=== PATIENT | female | born 1995 | race Caucasian/White ===

== ENCOUNTER 2018-02-12 16:44 | Emergency (ER) | payer MEDICAID ==
--- NOTE | 2018-02-12 17:14 | ED Physician Documentation ---
History of Present Illness - Stated complaint Stated Complaint: RIGHT ANKLE INJURY - Chief complaint Chief Complaint: Ext Problem - Additonal information Additional information: hx from pt 22 f denies preg fell down stairs pain to right ankle and foot no other sig injury occurred several days ago Review of Systems Musculoskeletal: reports: Pain with weight bearing PD PAST MEDICAL HISTORY - Past Medical History Past Medical History: Yes Musculoskeletal: Fibromyalgia - Present Medications Home Medications: Ambulatory Orders Medication Instructions Recorded Confirmed No Known Home Medications [No 02/12/18 02/12/18 Known Home Medications] - Allergies Allergies/Adverse Reactions: Allergies Allergy/AdvReac Type Severity Reaction Status Date / Time acetaminophen [From Vicodin] AdvReac Emesis Verified 02/12/18 16:56 hydrocodone [From Vicodin] AdvReac Emesis Verified 02/12/18 16:56 - Social History Does the pt smoke?: No Smoking Status: Never smoker Does the pt drink ETOH?: Yes Does the pt have substance abuse?: No - Immunizations Immunizations are current?: Yes PD ED PE NORMAL - Vitals Vital signs reviewed: Yes - Cardiac Cardiac: RRR - Respiratory Respiratory: No respiratory distress, Clear bilaterally - Extremities Extremities: Other (RLE: knee NT, prox tib fib NT, + swellignand TTP lateral mall > medial mall, achilles intact, TT base 5th, no laxity, MSV intact) Results - Vitals Vitals: Vital Signs - 24 hr 02/12/18 16:53 Temperature 36.6 C Heart Rate 101 H Respiratory 16 Rate Blood Pressure 150/82 H O2 Saturation 97 - Rads (name of study) ankle Radiology: See rad report (STS no fx) foot Radiology: See rad report (STS no fx) Departure - Departure Disposition: 01 Home, Self Care Clinical Impression: Ankle sprain Qualifiers: Encounter type: initial encounter Involved ligament of ankle: unspecified ligament Laterality: right Qualified Code(s): S93.401A - Sprain of unspecified ligament of right ankle, initial encounter Foot sprain Qualifiers: Encounter type: initial encounter Laterality: right Qualified Code(s): S93.601A - Unspecified sprain of right foot, initial encounter Condition: Good Instructions: ED Sprain Ankle, ED Sprain Foot Comments: The xrays show no fracture or dislocation. I suspect a sprain Recommend wearing the ABIOLA, applying ice for 20 min 3 times a day for three days , and elevation to decrease the swelling Crutches as needed to reduce weight bearing stress - if still cannot walk normally in 2 weeks, please follow up with your PMD for a recheck and consideration of further imaging Motrin and tylenol as needed for the pain And please get your blood pressure rechecked - it was high today
--- NOTE | 2018-02-12 17:37 | XRAY Report ---
EXAM: RIGHT ANKLE RADIOGRAPHY EXAM DATE: 02/12/2018 05:16 PM. CLINICAL HISTORY: Pain s/p fall. COMPARISON: None. TECHNIQUE: 3 views. FINDINGS: Bones: No fracture or focal bony lesion. Joints: No evidence of dislocation. Soft Tissues: There is lateral ankle soft tissue swelling. IMPRESSION: No evidence of fracture or dislocation. [facility] Referring Provider Line: [phone] SITE ID: [id number]
--- NOTE | 2018-02-12 17:38 | XRAY Report ---
EXAM: RIGHT FOOT RADIOGRAPHY EXAM DATE: 02/12/2018 05:16 PM. CLINICAL HISTORY: Fell down stairs. COMPARISON: None. TECHNIQUE: 3 views. FINDINGS: Bones: No fracture or focal bony lesion. Joints: No evidence of dislocation. Soft Tissues: No unexpected soft tissue findings. IMPRESSION: No evidence of fracture or dislocation. [facility] Referring Provider Line: [phone] SITE ID: [id number]
[2018-02-12] MEDS ORDERED: IBUPROFEN 400 MG TABLET PO STA (17:50)
[2018-02-12 18:21] VITALS: BP 133/83
== END 2018-02-12 18:18 | disposition home or self-care (01) ==
LOC: ED 16:44
DX: S93.401A Sprain of unspecified ligament of right ankle, initial encounter (principal); S93.601A Unspecified sprain of right foot, initial encounter; W10.9XXA Fall (on) (from) unspecified stairs and steps, initial encounter
CPT/HCPCS: 73610; 73630; 99282; 99283; A9270

== ENCOUNTER 2021-11-20 06:48 | Emergency (ER) | payer SELFPAY ==
[2021-11-20 06:58] VITALS: BP 128/98
--- NOTE | 2021-11-20 07:14 | ED Physician Documentation ---
PD HPI HEENT - Stated complaint Stated Complaint: LT EAR PX - Chief complaint Chief Complaint: Heent - History obtained from History obtained from: Patient - History of Present Illness Timing - onset: How many days ago (4) Timing - duration: Days (4) Timing - details: Gradual onset, Still present (much worse the past day, with pain causing lack of sleep the past 2 nights.) Location: Left ear. No: Nose, Throat Improves: No: Medication (tried ibuprofen and excedrin without improvement) Associated symptoms: Swollen nodes (left anterior cervical). No: Fever, Congestion Similar symptoms before: Diagnosis (ear infections in the past, but has been man y years since last one.) Recently seen: Not recently seen Review of Systems Constitutional: denies: Fever, Chills Ears: reports: Loss of hearing (decreased left side), Ear pain. denies: Drainage/discharge, Tinnitus/ringing Nose: denies: Rhinorrhea / runny nose, Congestion, Sinus pressure / pain Throat: denies: Sore throat Respiratory: denies: Cough Skin: denies: Rash, Lesions Neurologic: reports: Headache (left side head around ear.). denies: Focal weakness, Numbness, Altered mental status PD PAST MEDICAL HISTORY - Past Medical History Past Medical History: Yes Cardiovascular: None Respiratory: None Endocrine/Autoimmune: None Psych: Depression, Anxiety, Panic attacks, Post traumatic stress disorder Musculoskeletal: Fibromyalgia - Past Surgical History Past Surgical History: Yes - Present Medications Home Medications: Ambulatory Orders Medication Instructions Recorded Confirmed ARIPiprazole [Abilify] 20 mg PO DAILY 11/20/21 11/20/21 Buspirone HCl 10 mg PO DAILY 11/20/21 11/20/21 Ciprofloxacin HCl [Cipro] 500 mg PO BID #10 tablet 11/20/21 Naproxen 500 mg PO BID 7 Days #14 tab.sr 11/20/21 Neomycin/Polymyx/Hc Otic Drops 4 drops OT ONCE 5 Days #10 ml 11/20/21 [Cortisporin Ear Susp] Oxycodone HCl/Acetaminophen 1 each PO Q6H PRN #12 tablet 11/20/21 [Percocet 5-325 mg Tablet] Venlafaxine HCl [Effexor Xr] 225 mg PO DAILY 11/20/21 11/20/21 hydrOXYzine PAMOATE [Vistaril] 75 mg PO DAILY 11/20/21 11/20/21 - Allergies Allergies/Adverse Reactions: Allergies Allergy/AdvReac Type Severity Reaction Status Date / Time acetaminophen [From Vicodin] AdvReac Emesis Verified 11/20/21 06:58 hydrocodone [From Vicodin] AdvReac Emesis Verified 11/20/21 06:58 - Living Situation Living Situation: reports: With family Living Arrangement: reports: At home - Social History Does the pt smoke?: No Smoking Status: Never smoker Does the pt drink ETOH?: Yes Does the pt have substance abuse?: No - Immunizations Immunizations are current?: Yes - POLST Patient has POLST: No PD ED PE NORMAL - Vitals Vital signs reviewed: Yes - General General: Alert and oriented X 3, Well developed/nourished, Other (appears uncomfortable due to ear pain) - HEENT HEENT: Moist mucous membranes, Pharynx benign. No: Ears normal (right appears okay. Left canal with moderate swelling and redness. Tenderness in preauricular area as well. Not tender nor red in mastoid area. Left anterior neck with tender adenopathy. No abscess. TM poorly seen on left due to canal swelling. ) - Neck Neck: Supple, no meningeal sign - Cardiac Cardiac: RRR, No murmur - Respiratory Respiratory: Clear bilaterally - Derm Derm: Normal color, Warm and dry - Neuro Neuro: Alert and oriented X 3, No motor deficit, Normal speech Results - Vitals Vitals: Vital Signs - 24 hr 11/20/21 06:53 Temperature 36.9 C Heart Rate 98 Respiratory 18 Rate Blood Pressure 128/98 H O2 Saturation 100 Oxygen O2 Source Room air PD MEDICAL DECISION MAKING - ED course Complexity details: considered differential (otitis externa but also with tissue swelling and tender adenopathy c/w deeper tissue involvement so went with oral as well as topical, with med choice per UpToDate suggestions. ), d/w patient Departure - Departure Disposition: 01 Home, Self Care Clinical Impression: Cellulitis of left ear canal Otitis externa Qualifiers: Otitis externa type: unspecified type Chronicity: acute Laterality: left Qualified Code(s): H60.502 - Unspecified acute noninfective otitis externa, left ear Condition: Stable Record reviewed to determine appropriate education?: Yes Instructions: ED Infec Skin Cellulitis, ED Otitis Externa Prescriptions: Ciprofloxacin HCl [Cipro] 500 mg PO BID #10 tablet Neomycin/Polymyx/Hc Otic Drops [Cortisporin Ear Susp] 4 drops OT ONCE 5 Days #10 ml Naproxen 500 mg PO BID 7 Days #14 tab.sr Oxycodone HCl/Acetaminophen [Percocet 5-325 mg Tablet] 1 each PO Q6H PRN #12 tablet PRN Reason: pain Comments: Use Cipro antibiotic twice daily for 5 days and Cortisporin antibiotic ear drops 4 times daily for 5 days. For the pain and swelling, take Naproxen twice daily with food. Add Tylenol every 4-6 hours for pain or Percocet for worse pain. I would anticipate improvement over the next few days. Recheck if not better in 2-3 days. I transmitted your scripts to [facility] in [place], as they will be open today. Discharge Date/Time: 11/20/21 08:10
[2021-11-20] MEDS ORDERED: oxyCODONE 5 MG TABLET PO STA (07:28)
[2021-11-20] MEDS ORDERED: ACETAMINOPHEN 325 MG TABLET PO STA (07:28)
[2021-11-20] MEDS ORDERED: CIPROFLOXACIN 250 MG TABLET PO STA (07:34)
[2021-11-20] MEDS ORDERED: ONDANSETRON ODT 4 MG TABLET TL STA (07:35)
== END 2021-11-20 08:10 | disposition home or self-care (01) ==
LOC: ED 06:48
DX: H60.502 Unspecified acute noninfective otitis externa, left ear (principal); H60.12 Cellulitis of left external ear
CPT/HCPCS: 99283; 99284; A9270; Q0162

== ENCOUNTER 2021-12-30 14:14 | Emergency (ER) | payer SELFPAY ==
[2021-12-30] MEDS ORDERED: SODIUM CHLORIDE 0.9% 1,000 ML IV STA (14:45)
[2021-12-30] MEDS ORDERED: diphenhydrAMINE INJ 50 MG/ML VIAL IVP STA (14:45)
[2021-12-30] MEDS ORDERED: METOCLOPRAMIDE 10 MG/2 ML VIAL IVP STA (14:45)
[2021-12-30] MEDS ORDERED: KETOROLAC 15 MG/ML VIAL IVP STA (14:45)
--- NOTE | 2021-12-30 14:47 | ED Physician Documentation ---
PD HPI HEADACHE - Stated complaint Stated Complaint: HEAD PX - Chief complaint Chief Complaint: Neuro - History obtained from History obtained from: Patient - Additional information Additional information: 26-year-old woman with generally monthly or bimonthly migraines developed a typical migraine 10 days ago but was persistent despite taking Excedrin and a homeopathic migraine medicine. Headache is milder now but persistent, bitemporal and occipital. The nausea, light sensitivity and sound sensitivity have abated. There is no associated neck stiffness or fever. No sudden onset. Review of Systems Constitutional: denies: Fever, Chills Nose: denies: Rhinorrhea / runny nose, Congestion Cardiac: denies: Chest pain / pressure, Palpitations Respiratory: denies: Dyspnea, Cough PD PAST MEDICAL HISTORY - Past Medical History Cardiovascular: None Respiratory: None Endocrine/Autoimmune: None Psych: Depression, Anxiety, Panic attacks, Post traumatic stress disorder Musculoskeletal: Fibromyalgia - Past Surgical History Past Surgical History: Yes - Present Medications Home Medications: Ambulatory Orders Medication Instructions Recorded Confirmed ARIPiprazole [Abilify] 10 mg PO HS 11/20/21 12/30/21 Buspirone HCl 10 mg PO BID 11/20/21 12/30/21 Venlafaxine HCl [Effexor Xr] 225 mg PO DAILY 11/20/21 12/30/21 hydrOXYzine PAMOATE [Vistaril] 25 mg PO TID 11/20/21 12/30/21 Gabapentin [Neurontin] 300 mg PO DAILY 12/30/21 12/30/21 Gabapentin [Neurontin] 600 mg PO HS 12/30/21 12/30/21 OXcarbazepine [Trileptal] 150 mg PO BID 12/30/21 12/30/21 SUMAtriptan [Imitrex] 25 mg PO BID PRN #10 tablet 12/30/21 - Allergies Allergies/Adverse Reactions: Allergies Allergy/AdvReac Type Severity Reaction Status Date / Time acetaminophen [From Vicodin] AdvReac Emesis Verified 12/30/21 14:24 hydrocodone [From Vicodin] AdvReac Emesis Verified 12/30/21 14:24 - Social History Does the pt smoke?: No Smoking Status: Never smoker Does the pt drink ETOH?: Yes Does the pt have substance abuse?: No - Immunizations Immunizations are current?: Yes - POLST Patient has POLST: No PD ED PE NORMAL - Vitals Vital signs reviewed: Yes - General General: Alert and oriented X 3, No acute distress - HEENT HEENT: PERRL, EOMI - Neck Neck: Supple, no meningeal sign, No bony TTP - Neuro Neuro: Alert and oriented X 3, mems device scientist 2-12 intact, No motor deficit, No sensory deficit, Normal speech Eye Opening: Spontaneous Motor: Obeys Commands Verbal: Oriented GCS Score: 15 - Psych Psych: Normal mood, Normal affect Results - Vitals Vitals: Vital Signs - 24 hr 12/30/21 12/30/21 12/30/21 14:20 15:46 16:00 Temperature 36.7 C Heart Rate 87 88 71 Respiratory 16 18 18 Rate Blood Pressure 148/91 H 130/72 O2 Saturation 100 99 Oxygen O2 Source Room air PD MEDICAL DECISION MAKING - ED course ED course: The headache is gradual in onset and similar to prior headaches. As such I doubt subarachnoid hemorrhage. There are no infectious symptoms such as fever or stiff neck to make me suspect meningitis. No carbon monoxide exposure by history. She was initially given some IV fluids, Reglan, Toradol, and Benadryl. This resulted in really no change in her headache. Somewhere in there she did develop some wheezing but she just felt like that was from her usual asthma and did not have her inhaler with her so she was given a breathing treatment with relief. The above medications were followed with droperidol with almost complete relief of her headache. Departure - Departure Disposition: 01 Home, Self Care Clinical Impression: Migraine Condition: Good Record reviewed to determine appropriate education?: Yes Instructions: Imitrex, ED Headache Migraine Prescriptions: SUMAtriptan [Imitrex] 25 mg PO BID PRN #10 tablet PRN Reason: Headache Comments: Your headache responded today to droperidol, that may be a useful piece of information for future migraines. I sent your prescription for Imitrex to [facility] in [place]. Follow-up with your physician and report if it is working or not. Return for new or worsening symptoms. Do not drive today.
[2021-12-30 15:48] VITALS: BP 130/72
[2021-12-30] MEDS ORDERED: DROPERIDOL 5 MG/2 ML VIAL IVP STA (15:48)
[2021-12-30] MEDS ORDERED: ALBUTEROL NEB 2.5 MG/3 ML INH STA (15:48)
== END 2021-12-30 16:35 | disposition home or self-care (01) ==
LOC: ED 14:14
DX: G43.109 Migraine with aura, not intractable, without status migrainosus (principal); R06.2 Wheezing
CPT/HCPCS: 94640; 94664; 96374; 96375; 99283; 99284; J1200; J2765

== ENCOUNTER 2023-01-08 22:44 | Emergency (ER) | payer SELFPAY ==
[2023-01-08 22:56] VITALS: BP 123/85
[2023-01-08] MEDS ORDERED: ALBUTEROL NEB 2.5 MG/3 ML INH STA (23:44)
--- NOTE | 2023-01-09 00:03 | ED Physician Documentation ---
History of Present Illness - Stated complaint Stated Complaint: BREATHING TREATMENT - Chief complaint Chief Complaint: General - History obtained from History obtained from: Patient - Additonal information Additional information: 27yF with pmh asthma p/w nighttime cough and wheezing for the past several days. denies fever, soa, cp. Review of Systems Constitutional: denies: Fever Cardiac: denies: Chest pain / pressure Respiratory: reports: Cough. denies: Dyspnea PD PAST MEDICAL HISTORY - Past Medical History Past Medical History: Yes Cardiovascular: None Respiratory: None Endocrine/Autoimmune: None Psych: Depression, Anxiety, Panic attacks, Post traumatic stress disorder Musculoskeletal: Fibromyalgia - Past Surgical History Past Surgical History: Yes - Present Medications Home Medications: Ambulatory Orders Medication Instructions Recorded Confirmed ARIPiprazole [Abilify] 10 mg PO HS 11/20/21 12/30/21 Buspirone HCl 10 mg PO BID 11/20/21 12/30/21 Venlafaxine HCl [Effexor Xr] 225 mg PO DAILY 11/20/21 12/30/21 hydrOXYzine PAMOATE [Vistaril] 25 mg PO TID 11/20/21 12/30/21 Gabapentin [Neurontin] 300 mg PO DAILY 12/30/21 12/30/21 Gabapentin [Neurontin] 600 mg PO HS 12/30/21 12/30/21 OXcarbazepine [Trileptal] 150 mg PO BID 12/30/21 12/30/21 SUMAtriptan [Imitrex] 25 mg PO BID PRN #10 tablet 12/30/21 Albuterol Sulfate [Proair 90 mcg IH QID PRN 01/08/23 01/08/23 Digihaler] Albuterol Sulf [Ventolin Hfa 1 - 2 puffs INH Q4HR PRN #18 gm 01/09/23 Inhaler] - Allergies Allergies/Adverse Reactions: Allergies Allergy/AdvReac Type Severity Reaction Status Date / Time acetaminophen [From Vicodin] AdvReac Emesis Verified 01/08/23 22:56 hydrocodone [From Vicodin] AdvReac Emesis Verified 01/08/23 22:56 - Social History Does the pt smoke?: No Smoking Status: Never smoker Does the pt drink ETOH?: Yes Does the pt have substance abuse?: No - Immunizations Immunizations are current?: Yes - POLST Patient has POLST: No PD ED PE NORMAL - Vitals Vital signs reviewed: Yes - General General: Alert and oriented X 3, No acute distress, Well developed/nourished - HEENT HEENT: Atraumatic, PERRL, EOMI - Neck Neck: Supple, no meningeal sign - Cardiac Cardiac: RRR - Respiratory Respiratory: Other (scant BL wheezing) Results - Vitals Vitals: Vital Signs - 24 hr 01/08/23 01/08/23 22:45 23:55 Temperature 36.9 C Heart Rate 90 84 Respiratory 16 20 Rate Blood Pressure 123/85 H O2 Saturation 98 Oxygen O2 Source Room air PD Medical Decision Making - ED course ED course: 27yF p/w mild nighttime wheezing and request for med refill since she has run out of her albuterol. On exam she has mild BL wheezing in lower lung chanel, resolving s/p albuterol treatment. Meds sent to pharmacy. return precautions given. f/u with pcp. referral provided. Departure - Departure Disposition: Home, Self Care Clinical Impression: Asthma Condition: Good Instructions: Asthma Dc Follow-Up: Silverio Perry DO [Provider Admit Priv/Credential] - Prescriptions: Albuterol Sulf [Ventolin Hfa Inhaler] 1 - 2 puffs INH Q4HR PRN #18 gm PRN Reason: Shortness Of Air/Wheezing Comments: You were seen in the emergency department for asthma. A electronic prescription was sent to [facility] in [place]. Follow-up with your primary care provider ( referral enclosed). Return to the emergency department for new or worsening symptoms or other concerns. Discharge Date/Time: 01/09/23 00:04
== END 2023-01-09 00:04 | disposition home or self-care (01) ==
LOC: ED 22:44
DX: J45.909 Unspecified asthma, uncomplicated (principal)
CPT/HCPCS: 94664; 99283; 99284

== ENCOUNTER 2023-03-20 18:29 | Outpatient (CLI) | payer SELFPAY | END 2023-03-20 18:30 | disposition left against medical advice (07) | LOC: EMS 18:29 | DX: R42 Dizziness and giddiness (principal); R06.02 Shortness of breath ==

== ENCOUNTER 2023-08-23 14:29 | Outpatient (CLI) | payer SELFPAY | END 2023-08-23 14:30 | disposition critical access hospital (66) | LOC: EMS 14:29 | DX: R45.851 Suicidal ideations (principal) | CPT/HCPCS: A0425; A0429 ==

== ENCOUNTER 2023-08-23 15:05 | Emergency (ER) | payer SELFPAY ==
[2023-08-23 15:33] VITALS: BP 136/84; O2SAT 98
--- NOTE | 2023-08-23 15:38 | ED Physician Documentation ---
PD HPI MHE - Stated complaint Stated Complaint: SI - Chief complaint Chief Complaint: MHE - History obtained from History obtained from: Patient - Additional information Additional information: Patient is a 28-year-old presenting for evaluation of suicidal thoughts and worsening depression. Patient states that with her prior job she was using methamphetamine to stay awake so that she could work. During that time she also developed a gambling addiction and reports stilling $3000 worth of scratch off tickets. She then lost her job. Her significant other yesterday found some leftover methamphetamine and that they had an argument. [facility] herself with a sweater but states she was not able to get it tightened up and then returned home. She was able to call the crisis line and states they were able to talk her down. She is here today wanting to get help. She has been hospitalized previously but this was in [place] in 2020. She states she was on a regimen of medications that were helpful but moved up here in September 2021 and has been without medications for over a year.Last meth use was yesterday as she states she was trying to have enough energy to clean her home. Denies alcohol use. Does occasionally use cannabis and nicotine. Review of Systems Constitutional: denies: Fever Cardiac: denies: Chest pain / pressure Respiratory: denies: Dyspnea GI: denies: Abdominal Pain Psychiatric: reports: Depressed, Suicidal PD PAST MEDICAL HISTORY - Past Medical History Cardiovascular: None Respiratory: None Endocrine/Autoimmune: None Psych: Depression, Anxiety, Panic attacks, Post traumatic stress disorder Musculoskeletal: Fibromyalgia - Past Surgical History Past Surgical History: Yes - Present Medications Home Medications: Ambulatory Orders Medication Instructions Recorded Confirmed ARIPiprazole [Abilify] 10 mg PO HS 11/20/21 12/30/21 Buspirone HCl 10 mg PO BID 11/20/21 12/30/21 Venlafaxine HCl [Effexor Xr] 225 mg PO DAILY 11/20/21 12/30/21 hydrOXYzine PAMOATE [Vistaril] 25 mg PO TID 11/20/21 12/30/21 Gabapentin [Neurontin] 300 mg PO DAILY 12/30/21 12/30/21 Gabapentin [Neurontin] 600 mg PO HS 12/30/21 12/30/21 OXcarbazepine [Trileptal] 150 mg PO BID 12/30/21 12/30/21 SUMAtriptan [Imitrex] 25 mg PO BID PRN #10 tablet 12/30/21 Albuterol Sulfate [Proair 90 mcg IH QID PRN 01/08/23 01/08/23 Digihaler] Albuterol Sulf [Ventolin Hfa 1 - 2 puffs INH Q4HR PRN #18 gm 01/09/23 Inhaler] - Allergies Allergies/Adverse Reactions: Allergies Allergy/AdvReac Type Severity Reaction Status Date / Time acetaminophen [From Vicodin] AdvReac Emesis Verified 08/23/23 15:24 hydrocodone [From Vicodin] AdvReac Emesis Verified 08/23/23 15:24 - Social History Does the pt smoke?: No Smoking Status: Never smoker Does the pt drink ETOH?: Yes Does the pt have substance abuse?: No - Immunizations Immunizations are current?: Yes - POLST Patient has POLST: No PD ED PE NORMAL - General General: Alert and oriented X 3, No acute distress, Well developed/nourished - HEENT HEENT: Atraumatic, Moist mucous membranes, Pharynx benign - Neck Neck: Supple, no meningeal sign - Cardiac Cardiac: RRR, No murmur - Respiratory Respiratory: No respiratory distress, Clear bilaterally - Abdomen Abdomen: Soft, Non tender - Derm Derm: Warm and dry - Neuro Neuro: Normal speech Results - Vitals Vitals: Vital Signs - 24 hr 08/23/23 08/23/23 15:24 15:32 Temperature 36.8 C 36.7 C Heart Rate 100 100 Respiratory 16 16 Rate Blood Pressure 136/84 H 136/84 H O2 Saturation 98 98 Oxygen O2 Source Room air - Labs Labs: Laboratory Tests 08/23/23 08/23/23 08/23/23 15:25 15:25 15:30 WBC RBC Hgb Hct MCV MCH MCHC RDW Plt Count MPV Neut # (Auto) Lymph # (Auto) Ransom # (Auto) Eos # (Auto) Baso # (Auto) Absolute Nucleated RBC Nucleated RBC % Sodium Potassium Chloride Carbon Dioxide Anion Gap BUN Creatinine Estimated GFR (MDRD) Glucose Calcium Total Bilirubin AST ALT Alkaline Phosphatase Total Protein Albumin Globulin Albumin/Globulin Ratio Lipase TSH Urine Color DARK YELLOW Urine Clarity CLEAR Urine pH 6.0 Ur Specific [place] 1.025 Urine Protein NEGATIVE Urine Glucose (UA) NEGATIVE Urine Ketones NEGATIVE Urine Occult Blood NEGATIVE Urine Nitrite NEGATIVE Urine Bilirubin NEGATIVE Urine Urobilinogen 0.2 (NORMAL) Ur Leukocyte Esterase NEGATIVE Ur Microscopic Review NOT INDICATED Urine Culture Comments NOT INDICATED Urine HCG, Qual NEGATIVE Salicylates Urine Opiates Screen NEGATIVE Ur Oxycodone Screen NEGATIVE Urine Methadone Screen NEGATIVE Ur Propoxyphene Screen NEGATIVE Acetaminophen Ur Barbiturates Screen NEGATIVE Ur Tricyclics Screen NEGATIVE Ur Phencyclidine Scrn NEGATIVE Ur Amphetamine Screen POSITIVE H U Methamphetamines Scrn POSITIVE H U Benzodiazepines Scrn NEGATIVE Urine Cocaine Screen NEGATIVE U Cannabinoids Screen POSITIVE H Ethyl Alcohol SARS-CoV-2 (PCR) NOT DETECTED 08/23/23 08/23/23 15:47 15:47 WBC 9.9 RBC 5.46 H Hgb 15.1 Hct 44.8 MCV 82.1 MCH 27.7 MCHC 33.7 RDW 14.6 Plt Count 435 MPV 10.4 Neut # (Auto) 5.8 Lymph # (Auto) 2.8 Ransom # (Auto) 1.0 Eos # (Auto) 0.2 Baso # (Auto) 0.1 Absolute Nucleated RBC 0.00 Nucleated RBC % 0.0 Sodium 138 Potassium 3.9 Chloride 105 Carbon Dioxide 24 Anion Gap 9.0 BUN 9 Creatinine 0.8 Estimated GFR (MDRD) 87 L Glucose 106 H Calcium 10.1 Total Bilirubin 0.4 AST 50 H ALT 58 Alkaline Phosphatase 68 Total Protein 8.1 Albumin 5.0 Globulin 3.1 Albumin/Globulin Ratio 1.6 Lipase 19 TSH 2.35 Urine Color Urine Clarity Urine pH Ur Specific [place] Urine Protein Urine Glucose (UA) Urine Ketones Urine Occult Blood Urine Nitrite Urine Bilirubin Urine Urobilinogen Ur Leukocyte Esterase Ur Microscopic Review Urine Culture Comments Urine HCG, Qual Salicylates < 1.5 Urine Opiates Screen Ur Oxycodone Screen Urine Methadone Screen Ur Propoxyphene Screen Acetaminophen < 0.1 Ur Barbiturates Screen Ur Tricyclics Screen Ur Phencyclidine Scrn Ur Amphetamine Screen U Methamphetamines Scrn U Benzodiazepines Scrn Urine Cocaine Screen U Cannabinoids Screen Ethyl Alcohol < 10.0 SARS-CoV-2 (PCR) PD Medical Decision Making - ED course Complexity details: reviewed results, re-evaluated patient, d/w patient ED course: Patient is a 28-year-old female presenting for evaluation of suicidal thoughts and worsening depression. Recent stressors include loss of job, possible legal troubles, substance abuse, Arguments with significant other. Patient has been medically cleared with screening labs. A telepsychiatry consult has been requested. Patient has been calm and cooperative here. She is voluntary. Patient to be signed out to oncoming provider at shift change. 1615 - Patient is medically cleared. Social work consult requested. Departure - Departure Clinical Impression: Depression, Suicidal ideation, Methamphetamine abuse Condition: Stable Forms: PCP List
[2023-08-23 15:39] LABS: MUDS CUTOFF CONCENTRATIONS CUTOFF CONC BELOW:
[2023-08-23 15:42] LABS: BILIRUBIN,URINE NEGATIVE (NEGATIVE); GLUCOSE, URINE (UA) NEGATIVE (NEGATIVE); KETONES,URINE (UA) NEGATIVE (NEGATIVE); LEUKOCYTE ESTERASE, URINE NEGATIVE (NEGATIVE); NITRITE,URINE NEGATIVE (NEGATIVE); OCCULT BLOOD,URINE NEGATIVE (NEGATIVE); PROTEIN,URINE NEGATIVE (NEGATIVE); UROBILINOGEN,URINE 0.2 (NORMAL) E.U./dL (NORMAL)
[2023-08-23 15:44] LABS: CLARITY,URINE CLEAR (CLEAR); HCG UR QUAL NEGATIVE
[2023-08-23 15:51] LABS: BASOPHILS # (AUTO) 0.1 10^3/uL (0.0-0.1); BASOPHILS % (AUTO) 1.1 %; EOSINOPHILS # (AUTO) 0.2 10^3/uL (0.0-0.7); EOSINOPHILS % (AUTO) 2.1 %; HCT - HEMATOCRIT 44.8 % (37.0-47.0); HGB - HEMOGLOBIN 15.1 g/dL (12.0-16.0); LYMPHOCYTES # (AUTO) 2.8 10^3/uL (1.5-3.5); LYMPHOCYTES % (AUTO) 28.4 %; MEAN CORPUSCULAR HEMOGLOBIN 27.7 pg (27.0-31.0); MEAN CORPUSCULAR HGB CONC 33.7 g/dL (32.0-36.0); MEAN CORPUSCULAR VOLUME 82.1 fL (81.0-99.0); MEAN PLATELET VOLUME 10.4 fL (7.9-10.8); MONOCYTES % (AUTO) 9.6 %; NEUTROPHILS # (AUTO) 5.8 10^3/uL (1.5-6.6); NEUTROPHILS % (AUTO) 58.4 %; PLT - PLATELET COUNT 435 10^3/uL (130-450); RED BLOOD COUNT 5.46 10^6/uL (4.20-5.40); RED CELL DISTRIBUTION WIDTH 14.6 % (12.0-15.0); WHITE BLOOD COUNT 9.9 x10^3/uL (4.8-10.8)
[2023-08-23 15:57] LABS: COCAINE SCREEN URINE NEGATIVE (NEGATIVE); THC CANNABINOID SCREEN, URINE POSITIVE (NEGATIVE)
[2023-08-23 15:58] LABS: AMPHETAMINE SCREEN,URINE POSITIVE (NEGATIVE); BARBITURATE SCREEN,UR NEGATIVE (NEGATIVE); BENZODIAZEPINES SCREEN, URINE NEGATIVE (NEGATIVE); METHADONE SCREEN, URINE NEGATIVE (NEGATIVE); METHAMPHETAMINES SCREEN, URINE POSITIVE (NEGATIVE); OPIATE SCREEN, URINE NEGATIVE (NEGATIVE); OXYCODONE SCREEN, URINE NEGATIVE (NEGATIVE); PROPOXYPHENE SCREEN, URINE NEGATIVE (NEGATIVE); TRICYCLIC ANTIDEPRESSANT,URINE NEGATIVE (NEGATIVE)
[2023-08-23 16:06] LABS: ALBUMIN/GLOBULIN RATIO 1.6 (1.0-2.2); ALKALINE PHOSPHATASE 68 IU/L (42-121); ALT ALANINE AMINOTRANSFERASE 58 IU/L (10-60); AST ASPARTATE AMINOTRANSFERASE 50 IU/L (10-42); BILIRUBIN,TOTAL 0.4 mg/dL (0.2-1.0); BUN - BLOOD UREA NITROGEN 9 mg/dL (6-20); CALCIUM 10.1 mg/dL (8.5-10.3); CARBON DIOXIDE - CO2 24 mmol/L (21-32); CHLORIDE 105 mmol/L (101-111); CREATININE 0.8 mg/dL (0.6-1.3); ETOH - ETHANOL < 10.0 mg/dL; GFR - MDRD 87 (>89); GLUCOSE 106 mg/dL (74-104); LIPASE 19 U/L (11-82); POTASSIUM 3.9 mmol/L (3.5-4.5); SODIUM 138 mmol/L (135-145); TOTAL PROTEIN 8.1 g/dL (6.4-8.9)
[2023-08-23 16:07] LABS: ACETAMINOPHEN < 0.1 ug/mL; SALICYLATE < 1.5 mg/dL
[2023-08-23 16:21] LABS: THYROID STIMULATING HORMONE 2.35 uIU/mL (0.34-5.60)
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
[2023-08-23] MEDS ORDERED: ONDANSETRON ODT 4 MG TABLET TL STA (22:09)
[2023-08-23] MEDS ORDERED: LORazepam 1 MG TABLET PO STA (22:16)
== END 2023-08-23 22:30 ==
LOC: EDUNIT# → ED 15:05
DX: R45.851 Suicidal ideations (principal); F32.A Depression, unspecified; F15.10 Other stimulant abuse, uncomplicated; Z20.822 Contact with and (suspected) exposure to COVID-19
CPT/HCPCS: 36415; 80053; 80306; 80307; 80320; 80329; 81003; 81025; 83690; 84443; 85025; 87635; 90834; 99283; 99285; J8499; Q0162; Q3014; 81001; 87086

== ENCOUNTER 2023-11-12 11:36 | Emergency (ER) | payer MEDICAID ==
[2023-11-12 11:47] VITALS: BP 128/92; O2SAT 99
[2023-11-12] MEDS ORDERED: IPRATROPIUM/ALBUTEROL 3 ML NEB INH STA (12:54)
[2023-11-12] MEDS ORDERED: CHERRY SYRUP 10 ML UDC PO ONE (12:54)
[2023-11-12] MEDS ORDERED: BACLOFEN 10 MG TABLET PO STA (12:54)
[2023-11-12] MEDS ORDERED: IBUPROFEN 800 MG TABLET PO STA (12:54)
[2023-11-12] MEDS ORDERED: DEXAMETHASONE 10 MG/ML VIAL PO STA (12:54)
--- NOTE | 2023-11-12 12:57 | ED Physician Documentation ---
PD HPI URI - Stated complaint Stated Complaint: SOA - Chief complaint Chief Complaint: Resp - History obtained from History obtained from: Patient - History of Present Illness Associated symptoms: Nasal congestion, Rhinorrhea, Dry cough, Dyspnea (Wheezing). No: Fever Contributing factors: COPD / asthma. No: Immunocompromised, Unimmunized - Additional information Additional information: Patient is a 28-year-old female with a longstanding history of asthma. She is out of her albuterol inhaler. Requesting refill. Has felt short of breath for the past several days. She has had cough, congestion. No fevers. She does smoke occasionally. She also states that she is having back pain from coughing and request a dose of baclofen. Denies any possibility of . Review of Systems Constitutional: denies: Fever, Chills Nose: reports: Rhinorrhea / runny nose, Congestion Skin: denies: Rash Musculoskeletal: denies: Neck pain, Back pain Neurologic: denies: Headache PD PAST MEDICAL HISTORY - Past Medical History Cardiovascular: None Respiratory: None Endocrine/Autoimmune: None Psych: Depression, Anxiety, Panic attacks, Post traumatic stress disorder Musculoskeletal: Fibromyalgia - Past Surgical History Past Surgical History: Yes - Present Medications Home Medications: Ambulatory Orders Medication Instructions Recorded Confirmed ARIPiprazole [Abilify] 10 mg PO HS 11/20/21 12/30/21 Buspirone HCl 10 mg PO BID 11/20/21 12/30/21 Venlafaxine HCl [Effexor Xr] 225 mg PO DAILY 11/20/21 12/30/21 hydrOXYzine PAMOATE [Vistaril] 25 mg PO TID 11/20/21 12/30/21 Gabapentin [Neurontin] 300 mg PO DAILY 12/30/21 12/30/21 Gabapentin [Neurontin] 600 mg PO HS 12/30/21 12/30/21 OXcarbazepine [Trileptal] 150 mg PO BID 12/30/21 12/30/21 SUMAtriptan [Imitrex] 25 mg PO BID PRN #10 tablet 12/30/21 Albuterol Sulfate [Proair 90 mcg IH QID PRN 01/08/23 01/08/23 Digihaler] Albuterol Sulf [Ventolin Hfa 1 - 2 puffs INH Q4HR PRN #18 gm 01/09/23 Inhaler] Albuterol Sulf [Ventolin Hfa 1 - 2 puffs INH Q4HR PRN #1 each 11/12/23 Inhaler] Baclofen 5 mg PO Q8H PRN #10 tablet 11/12/23 - Allergies Allergies/Adverse Reactions: Allergies Allergy/AdvReac Type Severity Reaction Status Date / Time acetaminophen [From Vicodin] AdvReac Emesis Verified 11/12/23 11:45 hydrocodone [From Vicodin] AdvReac Emesis Verified 11/12/23 11:45 - Social History Does the pt smoke?: No Smoking Status: Never smoker Does the pt drink ETOH?: Yes Does the pt have substance abuse?: No - Immunizations Immunizations are current?: Yes - POLST Patient has POLST: No PD ED PE NORMAL - Vitals Vital signs reviewed: Yes - General General: Alert and oriented X 3, No acute distress - HEENT HEENT: PERRL, Moist mucous membranes - Neck Neck: Supple, no meningeal sign - Cardiac Cardiac: RRR, Strong equal pulses - Respiratory Respiratory: Other (Mild diminished breath sounds bilaterally, mild wheezing no stridor. No respiratory distress) - Abdomen Abdomen: Soft, Non tender, Non distended - Back Back: No spinal TTP (No midline tenderness over the thoracic or lumbar spines. Does have mild paraspinal spasm mid thoracic and upper lumbar. Bilateral.) - Derm Derm: Warm and dry - Extremities Extremities: No edema, No calf tenderness / cord - Neuro Neuro: Alert and oriented X 3, No motor deficit, No sensory deficit, Other (Normal bilateral lower extremity patellar and ankle jerk reflexes. Normal great toe extension bilaterally. no saddle anesthesia) - Psych Psych: Normal mood, Normal affect Results - Vitals Vitals: Vital Signs - 24 hr 11/12/23 11:42 Temperature 36.4 C L Heart Rate 93 Respiratory 20 Rate Blood Pressure 128/92 H O2 Saturation 99 Oxygen O2 Source Room air PD Medical Decision Making - ED course Complexity details: reviewed results, re-evaluated patient, considered differential, d/w patient ED course: 28-year-old female with a history of asthma. Well-appearing, nontoxic. Afebrile. No hypoxia. No respiratory distress. Given a dose of baclofen for her back pain. Given Motrin as well. Will place on dexamethasone here for her asthma. Given a DuoNeb treatment. Will refill her albuterol. Will have her follow-up with her PCP for further care. No evidence of pneumonia, sepsis. No indication for chest x-ray or further workup. Patient counseled regarding signs and symptoms for which I believe and urgent re-evaluation would be necessary. Patient with good understanding of and agreement to plan and is comfortable going home at this time This document was made in part using voice recognition software. While efforts are made to proofread this document, sound alike and grammatical errors may occur. Departure - Departure Disposition: 01 Home, Self Care Clinical Impression: Back muscle spasm Asthma exacerbation Qualifiers: Asthma severity: unspecified severity Asthma persistence: unspecified Qualified Code(s): J45.901 - Unspecified asthma with (acute) exacerbation Condition: Good Instructions: ED Reactive Airway Disease, ED Spasm Back No Trauma Follow-Up: [facility] [place] [Provider Group] [facility] [place] [Provider Group] Prescriptions: Albuterol Sulf [Ventolin Hfa Inhaler] 1 - 2 puffs INH Q4HR PRN #1 each PRN Reason: Shortness Of Air/Wheezing Baclofen 5 mg PO Q8H PRN #10 tablet PRN Reason: back pain Comments: Your prescriptions were sent to [facility] in [place]. Please use the inhaler as prescribed. You can use the baclofen as needed for back spasm. Please follow- up with the walk-in clinic or primary care office for further care. Return if you worsen. You were also given a dose of dexamethasone today, this will help with the swelling in your lungs.
== END 2023-11-12 13:26 | disposition home or self-care (01) ==
LOC: ED 11:36
DX: J45.901 Unspecified asthma with (acute) exacerbation (principal); M62.830 Muscle spasm of back
CPT/HCPCS: 94640; 94664; 99283; 99284; A9270

== ENCOUNTER 2023-12-02 15:58 | Emergency (ER) | payer MEDICAID ==
[2023-12-02 16:11] VITALS: BP 129/90; O2SAT 97
--- NOTE | 2023-12-02 16:16 | ED Physician Documentation ---
PD HPI HEENT - Stated complaint Stated Complaint: SOA/SORE THROAT/CONGESTION - Chief complaint Chief Complaint: Resp - History obtained from History obtained from: Patient - Additional information Additional information: 4 days severe sinus pain with drainage and productive cough with nighttime fevers and bilateral ear pressure. PD PAST MEDICAL HISTORY - Past Medical History Past Medical History: Yes Cardiovascular: None Respiratory: None Endocrine/Autoimmune: None Psych: Depression, Anxiety, Panic attacks, Post traumatic stress disorder Musculoskeletal: Fibromyalgia - Past Surgical History Past Surgical History: Yes - Present Medications Home Medications: Ambulatory Orders Medication Instructions Recorded Confirmed ARIPiprazole [Abilify] 10 mg PO HS 11/20/21 12/30/21 Buspirone HCl 10 mg PO BID 11/20/21 12/30/21 Venlafaxine HCl [Effexor Xr] 225 mg PO DAILY 11/20/21 12/30/21 hydrOXYzine PAMOATE [Vistaril] 25 mg PO TID 11/20/21 12/30/21 Gabapentin [Neurontin] 300 mg PO DAILY 12/30/21 12/30/21 Gabapentin [Neurontin] 600 mg PO HS 12/30/21 12/30/21 OXcarbazepine [Trileptal] 150 mg PO BID 12/30/21 12/30/21 SUMAtriptan [Imitrex] 25 mg PO BID PRN #10 tablet 12/30/21 Albuterol Sulfate [Proair 90 mcg IH QID PRN 01/08/23 01/08/23 Digihaler] Albuterol Sulf [Ventolin Hfa 1 - 2 puffs INH Q4HR PRN #18 gm 01/09/23 Inhaler] Albuterol Sulf [Ventolin Hfa 1 - 2 puffs INH Q4HR PRN #1 each 11/12/23 Inhaler] Baclofen 5 mg PO Q8H PRN #10 tablet 11/12/23 Albuterol Sulf [Ventolin Hfa 1 - 2 puffs INH Q4HR PRN #1 each 12/02/23 Inhaler] Amox/Clav 875/125 [Augmentin] 1 each PO Q12H #20 tablet 12/02/23 Benzonatate [Tessalon] 200 mg PO TID PRN #20 cap 12/02/23 - Allergies Allergies/Adverse Reactions: Allergies Allergy/AdvReac Type Severity Reaction Status Date / Time acetaminophen [From Vicodin] AdvReac Emesis Verified 12/02/23 16:07 hydrocodone [From Vicodin] AdvReac Emesis Verified 12/02/23 16:07 - Social History Does the pt smoke?: No Smoking Status: Never smoker Does the pt drink ETOH?: Yes Does the pt have substance abuse?: No - Immunizations Immunizations are current?: Yes - POLST Patient has POLST: No PD ED PE NORMAL - Vitals Vital signs reviewed: Yes - General General: Alert and oriented X 3, No acute distress - HEENT HEENT: Other (TTP Max sinuses, B serous otitis.) - Neck Neck: Supple, no meningeal sign, No bony TTP - Cardiac Cardiac: RRR, No murmur - Respiratory Respiratory: No respiratory distress, Clear bilaterally - Abdomen Abdomen: Non tender - Neuro Neuro: Alert and oriented X 3, Normal speech Results - Vitals Vitals: Vital Signs - 24 hr 12/02/23 16:03 Temperature 36.4 C L Heart Rate 88 Respiratory 20 Rate Blood Pressure 129/90 H O2 Saturation 97 Oxygen O2 Source Room air PD Medical Decision Making - ED course ED course: 28-year-old woman with history of asthma presents with URI with prominent sinus symptoms. Diagnosis: Sinusitis Departure - Departure Disposition: 01 Home, Self Care Condition: Good Record reviewed to determine appropriate education?: Yes Instructions: ED Sinusitis Abx Tx Prescriptions: Albuterol Sulf [Ventolin Hfa Inhaler] 1 - 2 puffs INH Q4HR PRN #1 each PRN Reason: Shortness Of Air/Wheezing Amox/Clav 875/125 [Augmentin] 1 each PO Q12H #20 tablet Benzonatate [Tessalon] 200 mg PO TID PRN #20 cap PRN Reason: Cough Comments: I sent your prescriptions electronically to [facility] in [place]. Your lungs are clear so I do not think you have bronchitis but you do have sympt oms consistent with a sinus infection. Follow-up with your doctor in about a week if not improved, return for new or worsening symptoms. Forms: PCP List
== END 2023-12-02 16:24 | disposition home or self-care (01) ==
LOC: ED 15:58
DX: J32.9 Chronic sinusitis, unspecified (principal); J45.909 Unspecified asthma, uncomplicated; M79.7 Fibromyalgia
CPT/HCPCS: 99283

== ENCOUNTER 2023-12-21 15:37 | Emergency (ER) | payer MEDICAID ==
[2023-12-21 15:55] VITALS: BP 145/86; O2SAT 97
== END 2023-12-21 17:33 | disposition left against medical advice (07) ==
LOC: ED 15:37
DX: Z53.21 Procedure and treatment not carried out due to patient leaving prior to being seen by health care provider (principal)

== ENCOUNTER 2023-12-22 07:01 | Emergency (ER) | payer MEDICAID ==
[2023-12-22] MEDS: ALBUTEROL NEB 2.5 MG/3 ML INH STA (07:45)
[2023-12-22] MEDS: predniSONE 20 MG TABLET PO STA (07:47)
--- NOTE | 2023-12-22 07:49 | ED Physician Documentation ---
PD HPI DYSPNEA - Stated complaint Stated Complaint: SOA - Chief complaint Chief Complaint: Resp - History obtained from History obtained from: Patient - History of Present Illness Timing - onset: How many months ago (over a month of worse asthma since URI symptoms at that time. Main illness improved and sinuses better with Rx med from recent visit. But cough and wheezing persist at higher than baseline amount. Uses Albuterol MDI 2-3 times daily. Has not been on maintenance meds for months due to insurance gap.) Timing - onset during: Light activity Timing - duration: Weeks, Months Timing - details: Gradual onset, Still present, Waxing and waning Inciting event(s): Out of meds, URI Improved by: Inhaler/neb Worsened by: Exertion, Coughing Associated symptoms: Cough, Wheezing. No: Fever, Hemoptysis, Palpitations Review of Systems Constitutional: denies: Fever, Chills Nose: reports: Rhinorrhea / runny nose, Congestion. denies: Sinus pressure / pain (that is improved with meds from 3 weeks ago.) Cardiac: denies: Chest pain / pressure Respiratory: reports: Dyspnea, Cough, Wheezing. denies: Hemoptysis PD PAST MEDICAL HISTORY - Past Medical History Past Medical History: Yes Cardiovascular: None Respiratory: Asthma Endocrine/Autoimmune: None Psych: Depression, Anxiety, Panic attacks, Post traumatic stress disorder Musculoskeletal: Fibromyalgia - Past Surgical History Past Surgical History: Yes - Present Medications Home Medications: Ambulatory Orders Medication Instructions Recorded Confirmed ARIPiprazole [Abilify] 10 mg PO HS 11/20/21 12/22/23 Buspirone HCl 10 mg PO BID 11/20/21 12/22/23 Venlafaxine HCl [Effexor Xr] 225 mg PO DAILY 11/20/21 12/22/23 hydrOXYzine PAMOATE [Vistaril] 25 mg PO TID 11/20/21 12/22/23 Gabapentin [Neurontin] 300 mg PO DAILY 12/30/21 12/22/23 Gabapentin [Neurontin] 600 mg PO HS 12/30/21 12/22/23 OXcarbazepine [Trileptal] 150 mg PO BID 12/30/21 12/22/23 SUMAtriptan [Imitrex] 25 mg PO BID PRN #10 tablet 12/30/21 12/22/23 Albuterol Sulfate [Proair 90 mcg IH QID PRN 01/08/23 12/22/23 Digihaler] Albuterol Sulf [Ventolin Hfa 1 - 2 puffs INH Q4HR PRN #18 gm 01/09/23 12/22/23 Inhaler] Albuterol Sulf [Ventolin Hfa 1 - 2 puffs INH Q4HR PRN #1 each 11/12/23 12/22/23 Inhaler] Baclofen 5 mg PO Q8H PRN #10 tablet 11/12/23 12/22/23 Albuterol Sulf [Ventolin Hfa 1 - 2 puffs INH Q4HR PRN #1 each 12/02/23 12/22/23 Inhaler] Amox/Clav 875/125 [Augmentin] 1 each PO Q12H #20 tablet 12/02/23 12/22/23 Benzonatate [Tessalon] 200 mg PO TID PRN #20 cap 12/02/23 12/22/23 Albuterol Sulf [Ventolin Hfa 2 - 3 puffs INH Q4HR PRN #1 each 12/22/23 Inhaler] Fluticasone Propion/Salmeterol 1 each IH BID 30 Days #1 each 12/22/23 [Fluticasone-Salmeterol 250-50] Montelukast Sodium 10 mg PO DAILY #30 tablet 12/22/23 predniSONE [Deltasone] 20 mg PO DAILY #7 tab 12/22/23 - Allergies Allergies/Adverse Reactions: Allergies Allergy/AdvReac Type Severity Reaction Status Date / Time acetaminophen [From Vicodin] AdvReac Emesis Verified 12/22/23 07:15 hydrocodone [From Vicodin] AdvReac Emesis Verified 12/22/23 07:15 - Social History Does the pt smoke?: No Smoking Status: Never smoker Does the pt drink ETOH?: Yes Does the pt have substance abuse?: No - Immunizations Immunizations are current?: Yes - POLST Patient has POLST: No PD ED PE NORMAL - Vitals Vital signs reviewed: Yes - General General: Alert and oriented X 3, No acute distress, Well developed/nourished - HEENT HEENT: Ears normal, Pharynx benign - Neck Neck: Supple, no meningeal sign, No adenopathy - Cardiac Cardiac: RRR, No murmur - Respiratory Respiratory: No respiratory distress. No: Clear bilaterally (no coarse sounds. Has scattered exp wheezing currently. Able to talk full sentences. ) - Derm Derm: Normal color, Warm and dry - Neuro Neuro: Normal speech Results - Vitals Vitals: Vital Signs - 24 hr 12/22/23 12/22/23 07:09 07:53 Temperature 36.6 C Heart Rate 96 78 Respiratory 18 15 Rate Blood Pressure 144/98 H O2 Saturation 99 Oxygen O2 Source Room air PD Medical Decision Making - ED course Complexity details: considered differential (Has had exacerbation of asthma for several weeks or more. Upper respiratory symptoms a month ago that has persisted. History of baseline asthma. He is wheezing now mild to moderately and will be later today before getting prescriptions so given nebulizer and prednisone here.), d/w patient ED course: She has been using her albuterol primarily recently. Newly recovered health insurance so had been off of maintenance medicines of Advair and Singulair for months. I can resume prescriptions for those. She has a new primary care appointment coming up in about 3 weeks. Departure - Departure Disposition: 01 Home, Self Care Clinical Impression: Dyspnea, Exacerbation of asthma Condition: Stable Record reviewed to determine appropriate education?: Yes Instructions: ED Reactive Airway Disease Prescriptions: Albuterol Sulf [Ventolin Hfa Inhaler] 2 - 3 puffs INH Q4HR PRN #1 each PRN Reason: Shortness Of Air/Wheezing predniSONE [Deltasone] 20 mg PO DAILY #7 tab Fluticasone Propion/Salmeterol [Fluticasone-Salmeterol 250-50] 1 each IH BID 30 Days #1 each Montelukast Sodium 10 mg PO DAILY #30 tablet Comments: I sent prescriptions to the [facility] in [place] for an albuterol inhaler to use 2 to 3 puffs 4 times daily as needed as well as prednisone 20 mg daily for the next 5 to 7 days. It would be good to be back on the maintenance medicines of the fluticasone/salmeterol as well as the montelukast. I wrote prescriptions for a month supply of those presuming your insurance covers it at this point. I would expect they would being generic and such. Follow-up with your new primary care upcoming as planned. Return if needed. Forms: PCP List
[2023-12-22 08:11] VITALS: BP 122/82; O2SAT 100
== END 2023-12-22 08:00 | disposition home or self-care (01) ==
LOC: ED 07:01
DX: J45.901 Unspecified asthma with (acute) exacerbation (principal)
CPT/HCPCS: 94640; 99284; J7512